=== PATIENT | female | born 1960 ===

== ENCOUNTER 2018-08-24 08:05 | Outpatient (CLI) | payer BC | END 2018-08-24 08:06 | disposition home or self-care (01) | LOC: BICMAMMO 08:05 | PROVIDERS: ATTEND Family Medicine | DX: Z12.31 Encounter for screening mammogram for malignant neoplasm of breast (principal); R92.1 Mammographic calcification found on diagnostic imaging of breast | CPT/HCPCS: 77063; 77067 ==